=== PATIENT | male | born 1930 | race Caucasian/White ===

== ENCOUNTER 2020-03-02 14:33 | Inpatient (IN) | payer OTHER ==
[~2020-03-02] VITALS: Ht 182.9 cm; Wt 46.3 kg
--- NOTE | 2020-03-02 15:00 | NUR ---
BIB [facility] FROM [facility],LOW [id number]=40% UP TO 91% WITH N/C TESTED (+) TO COVID 2 DAYS AGO. PATIENT A/OX1, BREATHING SLIGHTLY LABORED, INCREASED O2 TO 5LPM VIA NC, WITH SPO2 OF 99%. NO DSITRESS NOTED. DR. FRIEDMAN AT BEDSIDE FOR EVAL.
--- NOTE | 2020-03-02 15:10 | NUR ---
IV LINE ESTABLISHED, BLOOD DRAWN AND SENT TO LAB.
[2020-03-02 16:56] LABS: BASOPHILS % (AUTO) 0.2 % (0.0-2.0); EOSINOPHILS % (AUTO) 1.2 % (0.0-6.0); HEMATOCRIT 43 % (39-51); HEMOGLOBIN 14.1 g/dL (13.5-17.5); LYMPHOCYTES # (AUTO) 1.3 /CMM (0.8-4.8); LYMPHOCYTES % (AUTO) 18.5 % (20.0-44.0); MEAN CORPUSCULAR HGB CONC 33 g/dl (31.0-36.0); MEAN CORPUSCULAR VOLUME 94 fL (80-96); MONOCYTES # (AUTO) 0.8 /CMM (0.1-1.30); MONOCYTES % (AUTO) 11.7 % (2.0-12.0); NEUTROPHILS # (AUTO) 4.7 /CMM (1.8-8.9); NEUTROPHILS % (AUTO) 68.4 % (43.0-81.0); PLATELET COUNT (AUTO) 217 /CMM (150-450); WHITE BLOOD COUNT (AUTO) 6.8 K/uL (4.3-11.0)
[2020-03-02] MEDS ORDERED: IV NS 0.9% 500 ML BAG IV ONE (17:30)
[2020-03-02 17:50] LABS: ALANINE AMINOTRANSFERASE 35 U/L (12-78); ALBUMIN 2.7 g/dL (3.4-5.0); ALKALINE PHOSPHATASE 196 U/L (46-116); ASPARTATE AMINOTRANSFERASE 40 U/L (15-37); BILIRUBIN,DIRECT 0.2 mg/dL (0.0-0.2); BILIRUBIN,TOTAL 0.6 mg/dL (0.2-1.0); CALCIUM, SERUM 9.9 mg/dL (8.5-10.1); CARBON DIOXIDE 26 mmol/L (21-32); CHLORIDE 107 mmol/L (98-107); CREATININE 0.9 mg/dL (0.6-1.3); GLUCOSE 94 mg/dL (74-106); POTASSIUM 4.4 mmol/L (3.5-5.1); SODIUM SERUM 142 mmol/L (136-145); UREA NITROGEN, BLOOD 31 mg/dL (7-18)
[2020-03-02] MEDS ORDERED: MIRT15TA7 PO (17:57)
[2020-03-02] MEDS ORDERED: FURO20TA4 PO (17:57)
[2020-03-02] MEDS ORDERED: QUET25TA PO (17:57)
[2020-03-02] MEDS ORDERED: POTA10TA PO (17:57)
[2020-03-02] MEDS ORDERED: PRED2.5T PO (17:57)
--- NOTE | 2020-03-02 18:01 | NUR ---
LAB CALLED LACTIC ACID 2.1
[2020-03-02] MEDS ORDERED: IOHEXOL-300 100 ML VIAL IV ONE (18:07)
[2020-03-02] MEDS ORDERED: IV NS 0.9% 250 ML IV ONE (18:08)
[2020-03-02 18:09] LABS: BILIRUBIN,URINE Negative (NEGATIVE); BLOOD, URINE Large Ery/uL (NEGATIVE); COLOR,URINE YELLOW (YELLOW); LEUKOCYTE ESTERASE ,URINE Negative (NEGATIVE); NITRITE, URINE Negative (NEGATIVE); PROTEIN,URINE 30 mg/dl (NEGATIVE); UGLUCOSE Negative (NEGATIVE); UROBILINOGEN,URINE 0.2 EU/dL (0.2)
[2020-03-02 18:23] LABS: BACTERIA,URINE Rare /HPF (None Seen); RBC,URINE 21-50 /HPF (0-2); SQUAMOUS EPITHELIAL CELL,UR Few /HPF (None Seen); WBC,URINE NONE SEEN /HPF (0-3)
--- NOTE | 2020-03-02 19:18 | NUR ---
CALLED [facility] [phone] WILL CALL US BACK.
--- NOTE | 2020-03-02 19:19 | NUR ---
CALLED PHARMACY FOR MEDICATION.
--- NOTE | 2020-03-02 19:24 | NUR ---
PARISH NAGEL SPOKE TO [facility] REGARDING PT ADMISSION.
--- NOTE | 2020-03-02 19:27 | NUR ---
DR. SIDHU PAGED PER ER ORDER.
[2020-03-02] MEDS ORDERED: VANCOMYCIN 1 GM in IV D5W 250 ML IV ONE (19:30)
[2020-03-02] MEDS ORDERED: AZTREONAM 2 G in IV NS 0.9% 100 ML IV ONE (19:30)
[2020-03-02] MEDS ORDERED: DEXAMETHASONE SOD PHOSPHATE 10 MG/ML VIAL IV ONE (19:30)
[2020-03-02] MEDS ORDERED: DEXAMETHASONE SOD PHOSPHATE 10 MG/ML VIAL ONE (19:54)
--- NOTE | 2020-03-02 22:30 | NUR ---
CALLED DR DOWNS FOR ADMITTING ORDERS
[2020-03-02] MEDS ORDERED: Z GUARD REMEDY 2 OZ OINT TP PRN (23:00)
[2020-03-02] MEDS ORDERED: ONDANSETRON HCL/PF 4 MG/2 ML VIAL IVP PRN (23:00)
[2020-03-02] MEDS ORDERED: MAG HYDROX/AL HYDROX/SIMETH 30 ML UDC PO PRN (23:00)
[2020-03-02] MEDS ORDERED: ACETAMINOPHEN 325 MG TABLET PO PRN (23:00)
[2020-03-02] MEDS ORDERED: HYDROCODONE/APAP 5/325MG TABLET PO PRN (23:00)
[2020-03-02] MEDS ORDERED: MAGNESIUM HYDROXIDE 30 ML UDC PO PRN (23:00)
[2020-03-02] MEDS ORDERED: ZOLPIDEM TARTRATE 5 MG TABLET PO PRN (23:00)
--- NOTE | 2020-03-02 23:07 | NUR ---
CALLED AFTER HOUR PHARMACY TO VERIFY ORDERS
[2020-03-02] MEDS ORDERED: ENOXAPARIN SODIUM 40 MG/0.4 ML DISP.SYRIN SQ ONE (23:27)
[2020-03-02] MEDS ORDERED: CEFEPIME 1 GM VIAL ONE (23:27)
[2020-03-02] MEDS: CEFEPIME 1 GM in IV D5W 50 ML IV SCH (23:30)
[2020-03-02] MEDS: ENOXAPARIN SODIUM 40 MG/0.4 ML DISP.SYRIN SQ SCH (23:40)
--- NOTE | 2020-03-02 23:59 | NUR ---
SPOKE TO ON THE PHONE, PT IS A RESIDENT AT THE [facility] IN [place]
--- NOTE | 2020-03-03 03:05 | NUR ---
PT AAOX3, NO COMPLAINTS AT THIS TIME. PT CONNECTED TO THE MONITOR AND POX. RESPIRATIONS EVEN AND UNLABORED W/ NAD NOTED.
--- NOTE | 2020-03-03 04:22 | NUR ---
MACHINE STRAP BUCKLER AT BEDSIDE FOR BLOOD DRAW
[2020-03-03 04:32] LABS: BASOPHILS % (AUTO) 0.1 % (0.0-2.0); HEMATOCRIT 41 % (39-51); HEMOGLOBIN 13.5 g/dL (13.5-17.5); LYMPHOCYTES # (AUTO) 0.4 /CMM (0.8-4.8); LYMPHOCYTES % (AUTO) 8.3 % (20.0-44.0); MEAN CORPUSCULAR HGB CONC 33 g/dl (31.0-36.0); MEAN CORPUSCULAR VOLUME 93 fL (80-96); MONOCYTES # (AUTO) 0.1 /CMM (0.1-1.30); NEUTROPHILS # (AUTO) 4.7 /CMM (1.8-8.9); NEUTROPHILS % (AUTO) 90.6 % (43.0-81.0); PLATELET COUNT (AUTO) 240 /CMM (150-450); RED BLOOD CELL COUNT(AUTO) 4.43 MIL/uL (4.5-6.0); WHITE BLOOD COUNT (AUTO) 5.2 K/uL (4.3-11.0)
[2020-03-03 04:56] LABS: CALCIUM, SERUM 9.3 mg/dL (8.5-10.1); CREATININE 0.9 mg/dL (0.6-1.3); PHOSPHORUS 3.2 mg/dL (2.5-4.9); POTASSIUM 4.7 mmol/L (3.5-5.1)
[2020-03-03 04:58] LABS: D-DIMER 2.14 mg/L(FEU (0.17-0.50)
[2020-03-03 05:05] LABS: THYROID STIMULATING HORMONE 1.363 uIU/mL (0.358-3.74)
--- NOTE | 2020-03-03 06:45 | NUR ---
PT CLEANED. FULL LINEN AND GOWN CHANGED. PT AAOX2, VSS, RESPIRATIONS EVEN AND UNLABORED W/ 5 LPM VIA N/C. PT CONNECTED TO THE GLAZE CARRIER AND POX
--- NOTE | 2020-03-03 09:15 | NUR ---
PATIENT A/OX2, REPOSITIONED IN BED, FED BREAKFAST BY EMT AND TOLERATED WELL.
[2020-03-03] MEDS ORDERED: SERT25TA PO (09:31)
[2020-03-03] MEDS ORDERED: MELA5TAB PO (09:31)
[2020-03-03] MEDS: DEXAMETHASONE SOD PHOSPHATE 10 MG/ML VIAL IV SCH (09:34)
[2020-03-03] MEDS: QUETIAPINE FUMARATE 25 MG TABLET PO SCH ×2 (09:34→17:30)
[2020-03-03] MEDS ORDERED: MIRT15TA7 PO (11:01)
[2020-03-03] MEDS ORDERED: GUAI-970 PO (11:06)
[2020-03-03] MEDS ORDERED: ACET325T53 MC (11:06)
[2020-03-03] MEDS ORDERED: LATA2.5D15 OP (11:06)
--- NOTE | 2020-03-03 12:00 | NUR ---
PATIENT ATE LUNCH AND TOLERATED WELL. NO DISTRESS NOTED, PERICARE PROVIDED. TURNED AND REPOSITIONED. O2 TITRATED DOWN TO 2LPM VIA NC WITH SPO2 OF 94-96%. NO RESP DISTRESS NOTED.
[2020-03-03] MEDS: VANCOMYCIN 1 GM in IV D5W 250 ML IV SCH (14:00)
--- NOTE | 2020-03-03 18:39 | NUR ---
PATIENT RESTING, PERICARE PROVIDED, TURNED AND RESPOSITIONED EVERY 2 HOURS. BREATHING EVEN AND UNLABORED, TOLERATING 2LPM VIA NC.
--- NOTE | 2020-03-03 19:15 | NUR ---
REC'D POS COVID RESULTS. AWARE
--- NOTE | 2020-03-03 20:03 | NUR ---
PT REMAINS IN BED, TURNED AND RESPOSITIONED EVERY 2 HOURS. BREATHING EVEN AND UNLABORED.
[2020-03-03] MEDS: ENOXAPARIN SODIUM 40 MG/0.4 ML DISP.SYRIN SQ SCH (21:04)
--- NOTE | 2020-03-03 21:20 | NUR ---
PT REPOSITIONED, GIVEN A PILLOW, AND MORE BLANKETS. PT ON 2L NC. SAT 94-96%. VSS. PT AAOX2. CALL LIGHT AT BEDSIDE. PT RESTING COMFORTABLY. WILL CONTINUE TO MONITOR.
[2020-03-03] MEDS: MIRTAZAPINE 15 MG TABLET PO SCH (21:56)
[2020-03-03] MEDS: CEFEPIME 1 GM in IV D5W 50 ML IV SCH (23:05)
--- NOTE | 2020-03-03 23:10 | NUR ---
PT REPOSITIONED, REMAINS ON 2L NC, SAT 97%. VSS.
--- NOTE | 2020-03-04 01:09 | NUR ---
PT REPOSITIONED TO THE LEFT, VSS.
--- NOTE | 2020-03-04 03:17 | NUR ---
CHECKED ON PT, PT NOTED ASLEEP. VSS. NO ACUTE DISTRESS NOTED. WILL CONTINUE TO MONITOR.
--- NOTE | 2020-03-04 05:01 | NUR ---
SENIOR ENGINEERING TECHNICIAN AT BEDSIDE FOR [facility].
[2020-03-04 06:02] LABS: BASOPHILS % (AUTO) 0.1 % (0.0-2.0); HEMATOCRIT 38 % (39-51); HEMOGLOBIN 12.6 g/dL (13.5-17.5); LYMPHOCYTES # (AUTO) 0.9 /CMM (0.8-4.8); LYMPHOCYTES % (AUTO) 10.2 % (20.0-44.0); MEAN CORPUSCULAR HGB CONC 33 g/dl (31.0-36.0); MEAN CORPUSCULAR VOLUME 92 fL (80-96); MONOCYTES # (AUTO) 0.7 /CMM (0.1-1.30); MONOCYTES % (AUTO) 7.8 % (2.0-12.0); NEUTROPHILS # (AUTO) 7.3 /CMM (1.8-8.9); NEUTROPHILS % (AUTO) 81.9 % (43.0-81.0); PLATELET COUNT (AUTO) 252 /CMM (150-450); RED BLOOD CELL COUNT(AUTO) 4.14 MIL/uL (4.5-6.0); WHITE BLOOD COUNT (AUTO) 8.9 K/uL (4.3-11.0)
[2020-03-04 06:20] LABS: CALCIUM, SERUM 9.6 mg/dL (8.5-10.1); CREATININE 0.7 mg/dL (0.6-1.3); MAGNESIUM 2.4 mg/dL (1.8-2.4); PHOSPHORUS 4.1 mg/dL (2.5-4.9); POTASSIUM 4.1 mmol/L (3.5-5.1)
--- NOTE | 2020-03-04 06:45 | NUR ---
PT REPOSITIONED, PROVIDED WITH MORE BLANKETS. VSS.
--- NOTE | 2020-03-04 07:18 | NUR ---
REPORT GIVEN TO TETE LÓPEZ FOR [facility]
[2020-03-04] MEDS: QUETIAPINE FUMARATE 25 MG TABLET PO SCH ×2 (08:17→17:30)
[2020-03-04] MEDS: DEXAMETHASONE SOD PHOSPHATE 10 MG/ML VIAL IV SCH (08:17)
[2020-03-04] MEDS: VANCOMYCIN 1 GM in IV D5W 250 ML IV SCH (08:18)
--- NOTE | 2020-03-04 09:24 | NUR ---
PATIENT A/OX1, BREATHING EVEN AND UNLABORED, ON O2 AT 3LPM VIA NC WITH SPO2 OF 94-96%. NO DISTRESS NOTED, REPOSITIONED. DIAPER CHANGED. BREAKFAST PROVIDED, FED BY STATE EDITOR AND TOLERATED WELL.
--- NOTE | 2020-03-04 18:25 | NUR ---
PATIENT TRANSFERRED TO ROOM 201 VIA ACLS PROTOCOL. IN NO DISTRESS. REPORT GIVEN TO VEGA LÓPEZ. NEEDS ATTENDED.
--- NOTE | 2020-03-04 18:29 | NUR ---
RN NOTES RECEIVED PATIENT FROM ER VIA GURNEY, PLACED IN ROOM. ORIENTED TO ROOM, CALL LIGHT AND UNIT. OBSERVED PATIENT CONSTANTLY REMOVING NASAL CANNULA AND PULLING OUT IV ACCESS. MD MADE AWARE. ALERT AND ORIENTED X1. BED IN LOWEST POSITION LOCKED. BED ALARM ON. FREQUENT VISUAL CHECK DONE.
[2020-03-04 19:00] VITALS: BP 98/72
--- NOTE | 2020-03-04 19:00 | NUR ---
RN NOTES PATIENT ALERT AND ORIENTED X1. VERBALLY RESPONSIVE. RECEIVED ORDER FOR BILATERAL WRIST RESTRAINT, APPLIED WITH SKIN AND CIRCULATION CHECKED. ENDORSED TO NOC SHIFT RNLURDES FOR CONTINUATION OF CARE. V/S 98/72, HR: 101; RR: 21 T: 98.4.
[2020-03-04 20:00] VITALS: BP 107/72
[2020-03-04] MEDS ORDERED: VANCOMYCIN 1 GM in IV D5W 250 ML IV SCH (20:00)
[2020-03-04] MEDS: ENOXAPARIN SODIUM 40 MG/0.4 ML DISP.SYRIN SQ SCH (21:00)
[2020-03-04] MEDS: MIRTAZAPINE 15 MG TABLET PO SCH (21:54)
[2020-03-04] MEDS: CEFEPIME 1 GM in IV D5W 50 ML IV SCH (23:05)
--- NOTE | 2020-03-04 23:36 | NUR ---
MS2/RN DURING INITIAL ROUNDING, PATIENT WAS AWAKE, CONFUSED, MILDLY RESTLESS, BILATERAL SOFT WRIST RESTRAIN NOTED TO PREVENT PULLING OUT THE IV, NO SIGNS OF DISTRESS NOTED, WILL CLOSELY MONITOR FOR SAFETY.
[2020-03-05] VITALS: BP 148/81
[2020-03-05 04:00] VITALS: BP 138/85
[2020-03-05 06:07] LABS: BASOPHILS % (AUTO) 0.3 % (0.0-2.0); HEMATOCRIT 43 % (39-51); HEMOGLOBIN 13.7 g/dL (13.5-17.5); LYMPHOCYTES # (AUTO) 0.8 /CMM (0.8-4.8); LYMPHOCYTES % (AUTO) 7.1 % (20.0-44.0); MEAN CORPUSCULAR HGB CONC 32 g/dl (31.0-36.0); MEAN CORPUSCULAR VOLUME 93 fL (80-96); MONOCYTES # (AUTO) 1.3 /CMM (0.1-1.30); MONOCYTES % (AUTO) 11.3 % (2.0-12.0); NEUTROPHILS # (AUTO) 9.4 /CMM (1.8-8.9); NEUTROPHILS % (AUTO) 81.3 % (43.0-81.0); PLATELET COUNT (AUTO) 246 /CMM (150-450); RED BLOOD CELL COUNT(AUTO) 4.55 MIL/uL (4.5-6.0); WHITE BLOOD COUNT (AUTO) 11.6 K/uL (4.3-11.0)
[2020-03-05 06:18] LABS: CALCIUM, SERUM 9.4 mg/dL (8.5-10.1); CREATININE 0.7 mg/dL (0.6-1.3); MAGNESIUM 2.4 mg/dL (1.8-2.4); PHOSPHORUS 2.1 mg/dL (2.5-4.9); POTASSIUM 3.8 mmol/L (3.5-5.1)
--- NOTE | 2020-03-05 06:29 | NUR ---
MS2/RN PATIENT IS SLEEPING AT THIS TIME, APPEAR COMFORTABLE, NO SIGNS OF DISTRESS NOTED, CALL LIGHT IN REACH, ALL NEEDS ATTENDED AT THIS TIME, WILL CONTINUE TO MONITOR.
--- NOTE | 2020-03-05 07:30 | NUR ---
TELE/RN OPENING NOTE Received patient resting in bed, A&O x 1. No s/s of pain/discomfort at this time. Breathing even and non-labored on 2L oxygen via NC. No respiratory or cardiac distress noted. On tele monitor, reading SR 93. IV accesses noted on R AC #18 and L FA #22, both patent and intact, and flushing well. Bilateral soft wrist restraints noted, patient attempted to remove lines and tele leads, circulation and sensation remain intact in both extremities, able to clench fists. Bed locked to its lowest position, side rails x 2 up, call light in hand. Will continue with current medical management.
[2020-03-05 08:00] VITALS: BP 130/68
[2020-03-05] MEDS: DEXAMETHASONE SOD PHOSPHATE 10 MG/ML VIAL IV SCH (08:04)
[2020-03-05] MEDS: QUETIAPINE FUMARATE 25 MG TABLET PO SCH ×2 (08:04→16:47)
[2020-03-05 12:00] VITALS: BP 129/106
[2020-03-05] MEDS ORDERED: K PHOS NEUTRAL 250 MG TABLET PO ONE (13:30)
[2020-03-05 16:00] VITALS: BP 120/78
[2020-03-05] MEDS: IPRATROPIUM/ALBUTEROL INHALER IH SCH (18:00)
--- NOTE | 2020-03-05 19:10 | NUR ---
TELE/RN CLOSING NOTE Patient sleeping in bed, A&O x 1. All needs met and attended to. No s/s of pain/discomfort at this time. Breathing even and non-labored on 2L oxygen via NC. No respiratory or cardiac distress noted. On tele monitor, reading SR 78. IV accesses noted on R AC #18 and L FA #22, both patent and intact, and flushing well. Bilateral soft wrist restraints in place, patient circulation and sensation remain intact in both extremities, able to clench fists. Bed locked to its lowest position, side rails x 2 up, call light in hand. Will continue with current medical management.
[2020-03-05 20:00] VITALS: BP 121/67
[2020-03-05] MEDS: MIRTAZAPINE 15 MG TABLET PO SCH (22:07)
[2020-03-05] MEDS: ENOXAPARIN SODIUM 40 MG/0.4 ML DISP.SYRIN SQ SCH (22:07)
[2020-03-05] MEDS: CEFEPIME 1 GM in IV D5W 50 ML IV SCH (23:58)
[2020-03-06] VITALS: BP 125/66
--- NOTE | 2020-03-06 00:09 | NUR ---
COMBIVENT INHALER NOT AT BEDSIDE. TO FOLLOW UP WITH PHARMACY TOMORROW SINCE OFFSITE PHARMACY ONLY AVAILABLE. PT IN NO APPARENT RESP DISTRESSS. RESP EVEN AND UNLABORED ON 2LNC.
--- NOTE | 2020-03-06 02:59 | NUR ---
requested combivent from housekeeping worker she is going to check night stock.
[2020-03-06 04:00] VITALS: BP 149/80
[2020-03-06] MEDS: IPRATROPIUM/ALBUTEROL INHALER IH SCH ×4 (06:00→18:22)
--- NOTE | 2020-03-06 06:31 | NUR ---
COMBIVENT UNAVAILABLE IN NIGHT STOCK WILL FOLLOW UP WITH PHARMACY THIS AM.
[2020-03-06 06:39] LABS: BASOPHILS % (AUTO) 0.1 % (0.0-2.0); HEMATOCRIT 43 % (39-51); HEMOGLOBIN 14.3 g/dL (13.5-17.5); LYMPHOCYTES # (AUTO) 0.9 /CMM (0.8-4.8); LYMPHOCYTES % (AUTO) 10.2 % (20.0-44.0); MEAN CORPUSCULAR HGB CONC 33 g/dl (31.0-36.0); MEAN CORPUSCULAR VOLUME 92 fL (80-96); MONOCYTES # (AUTO) 1.2 /CMM (0.1-1.30); NEUTROPHILS # (AUTO) 6.9 /CMM (1.8-8.9); NEUTROPHILS % (AUTO) 76.7 % (43.0-81.0); PLATELET COUNT (AUTO) 320 /CMM (150-450); RED BLOOD CELL COUNT(AUTO) 4.71 MIL/uL (4.5-6.0)
[2020-03-06 06:46] LABS: CALCIUM, SERUM 9.7 mg/dL (8.5-10.1); CREATININE 0.7 mg/dL (0.6-1.3); MAGNESIUM 2.4 mg/dL (1.8-2.4); PHOSPHORUS 2.1 mg/dL (2.5-4.9); POTASSIUM 3.9 mmol/L (3.5-5.1)
--- NOTE | 2020-03-06 07:00 | NUR ---
TELE/RN CLOSING NOTE PT IN BED WITH EYES CLOSED IN NO S/S OF PAIN OR DISCOMFORT BRATHING EVEN AND UNLABORED ON 2LNC BILATERAL SOFT WRIST RESTRAINTS IN PLACE CIRCULATION CAP REFILL LESS THEN 3 SECONDS TO BOTH HANDS. BED LOCKED DOWN IN LOW POSITION CALL LIGHT IN REACH. BED ALARM ACTIVE.
--- NOTE | 2020-03-06 07:32 | NUR ---
SAILBOAT CAPTAIN OPENING NOTES RECEIVED PATIENT IN BED, AWAKE, A/O X1, CONFUSED. PATIENT ON OXYGEN THERAPY AT 2 LMP VIA NASAL CANNULA; IN NO ACUTE RESPIRATORY DISTRESS. NO COMPLAINS OF PAIN. RAC G #18 AND LFA G #22 IV ACCESS PRESENT AND INTACT. PATIENT ON BILATERAL SOFT WRIST RESTRAINS. SAFETY PRECAUTIONS IN PLACE; BED IN LOW POSITION AND LOCKED, RAILS UP X2, CALL LIGHT WITHIN REACH. WILL CONTINUE TO MONITOR PATIENT.
--- NOTE | 2020-03-06 07:44 | NUR ---
COMBIVENT INHALER REQUESTED FROM PHARMACY; STATE WILL DELIVER NEW INHALER TO UNIT.
[2020-03-06 08:00] VITALS: BP 131/82
[2020-03-06] MEDS: DEXAMETHASONE SOD PHOSPHATE 10 MG/ML VIAL IV SCH (08:26)
[2020-03-06] MEDS: QUETIAPINE FUMARATE 25 MG TABLET PO SCH ×2 (08:26→16:39)
--- NOTE | 2020-03-06 09:01 | NUR ---
WOUND CARE CONSULT: REVIEWED CHART AND NURSING DOCUMENTATION. SPOKE WITH RN AND DISCUSSED SKIN PROTECTION. CURRENT JADE SCORE IS 14. PER NURSING STAFF, PT IS UNCOOPERATIVE AT TIMES. MD IN AGREEMENT WITH PLAN OF CARE.
[2020-03-06 12:00] VITALS: BP 101/69
--- NOTE | 2020-03-06 12:44 | NUR ---
OPERATIONS LIAISON NOTES PATIENT IN BED, AWAKE, SATURATING 88% ON ROOM AIR AT REST.
[2020-03-06] MEDS ORDERED: DEXA6TAB PO (13:01)
[2020-03-06] MEDS ORDERED: ASPI-992 PO (13:01)
[2020-03-06 16:00] VITALS: BP 122/75
[2020-03-06] MEDS ORDERED: K PHOS NEUTRAL 250 MG TABLET PO ONE (16:30)
--- NOTE | 2020-03-06 18:51 | NUR ---
FIREARMS SPECIALIST CLOSING NOTES PATIENT IN BED, AWAKE, A/O X1, CONFUSED AND AWAITING DISCHARGE. ALL PAPERS ARE READY AND WILL ENDORSE TO POLE FRAMER NURSE. PATIENT ON OXYGEN THERAPY AT 2 LMP VIA NASAL CANNULA; IN NO ACUTE RESPIRATORY DISTRESS. NO COMPLAINS OF PAIN DURING THE DAY. RAC G #18 AND LFA G #22 IV ACCESS PRESENT AND INTACT. PATIENT REMAINS ON BILATERAL SOFT WRIST RESTRAINS. ALL NEEDS ATTENDED THROUGHOUT THE DAY. SAFETY PRECAUTIONS IN PLACE; BED IN LOW POSITION AND LOCKED, RAILS UP X2, CALL LIGHT WITHIN REACH. WILL ENDORSE TO POLE FRAMER NURSE.
--- NOTE | 2020-03-06 19:50 | NUR ---
TELECOM COORDINATOR OPENING NOTES RECEIVED PATIENT IN BED, ALERT AND ORIENTED X 1 CONFUSED. VERBALLY RESPONSIVE, UNCOOPERATIVE AT TIMES. BREATHING REGULAR AND UNLABORED ON OXYGEN AT 2L/MIN VIA NASAL CANNULA, LATEST SPO2 95%. LEFT FOREARM G22/RIGHT AC G18 IV LINES INTACT AND PATENT, FLUSHING WELL WITH NO BLEEDING OR S/S OF INFILTRATION NOTED. ON CARDIAC MONITORING WITH NORMAL SINUS RHYTHM WITH PVC's AT 93bmp. NO S/S OF PAIN/DISCOMFORT SEEN AT THIS TIME. BILATERAL SOFT WRIST RESTRAINTS ON, SKIN ASSESSMENT AND CIRCULATION CHECKED. BED LOW AND LOCKED ON SEMI FOWLERS POSITION. CALL LIGHT IN REACH. MAINTAINED ON ISOLATION FOR COVID19, PROPER HAND WASHING AND ISOLATION PRECAUTIONS OBSERVED. WILL CONTINUE TO MONITOR.
[2020-03-06 20:00] VITALS: BP 119/65
[2020-03-06] MEDS: ENOXAPARIN SODIUM 40 MG/0.4 ML DISP.SYRIN SQ SCH (21:39)
[2020-03-06] MEDS: MIRTAZAPINE 15 MG TABLET PO SCH (21:39)
[2020-03-06] MEDS: CEFEPIME 1 GM in IV D5W 50 ML IV SCH (22:18)
[2020-03-07] VITALS: BP 150/86
--- NOTE | 2020-03-07 00:15 | NUR ---
ADVANCED MANUFACTURING CONSULTANT NOTES REFUSED DUE BREATHING TREATMENT, BITING OFF INHALER AND SPITTING. RISK AND BENEFITS EXPLAINED.
[2020-03-07 04:00] VITALS: BP 142/78
[2020-03-07] MEDS: IPRATROPIUM/ALBUTEROL INHALER IH SCH ×3 (05:46→12:58)
--- NOTE | 2020-03-07 06:55 | NUR ---
UTILITY AIRCREWMAN CLOSING NOTES PATIENT IN BED, ALERT AND ORIENTED X 1 CONFUSED. AFEBRILE WITH NO S/S OF DISTRESS OBSERVED. LEFT FOREARM G22/RIGHT AC G18 IV LINES PATENT AND FLUSHING WELL. MAINTAINED ON CARDIAC MONITORING WITH SINUS TACHYCARDIA WITH PVC's AT 113bmp. NO S/S OF PAIN/DISCOMFORT NOTED AT THIS TIME. BILATERAL SOFT WRIST RESTRAINTS ON. BED LOW AND LOCKED ON SEMI FOWLERS POSITION. CALL LIGHT IN REACH. WILL ENDORSE TO MORNING SHIFT FOR CORBIN.
--- NOTE | 2020-03-07 07:15 | NUR ---
RN NOTES RECEIVED PATIENT IN BED ALERT AND AWAKE ORIENTED X1. HOB ELEVATED. NO S/S OF RESPIRATORY DISTRESS. BED IN LOWEST POSITION ,LOCKED. BED ALARM ON. CALL LIGHT WITHIN REACH. FREQUENT VISUAL CHECK DONE.
[2020-03-07 07:48] LABS: CALCIUM, SERUM 8.9 mg/dL (8.5-10.1); CREATININE 0.6 mg/dL (0.6-1.3); PHOSPHORUS 1.7 mg/dL (2.5-4.9); POTASSIUM 3.3 mmol/L (3.5-5.1)
[2020-03-07 08:00] VITALS: BP 136/79
[2020-03-07] MEDS: DEXAMETHASONE SOD PHOSPHATE 10 MG/ML VIAL IV SCH (08:22)
[2020-03-07] MEDS: QUETIAPINE FUMARATE 25 MG TABLET PO SCH (08:22)
[2020-03-07] MEDS ORDERED: K PHOS NEUTRAL 250 MG TABLET PO ONE (10:00)
[2020-03-07] MEDS ORDERED: POTASSIUM CHLORIDE 20 MEQ POWDER PACKET PO ONE (10:00)
[2020-03-07 12:00] VITALS: BP 112/75
--- NOTE | 2020-03-07 14:51 | NUR ---
RN NOTES PATIENT FOR DISCHARGE, CM FROM [place] STATED THAT CONCENTRATOR HAS BEEN DELIVERED TO [facility] AND THAT THEY ARE AWARE THAT PATIENT IS GOING BACK TO [place] TODAY. ALERT AND ORIENTED X1. ABLE TO FOLLOW SIMPLE COMMANDS. REMAINED ON 2L/MIN VIA NC ARNEL WELL. PATIENT FOR DISCHARGE. ALL BELONGINGS ACCOUNTED FOR. IV ACCESS REMOVED WITH CATHETER TIP INTACT WITH GAUZE DRESSING APPLIED. PATIENT PICKED UP BY 2 EMT AND LEFT VIA GURNEY IN STABLE CONDITION.
== END 2020-03-07 14:51 | DRG 177 ==
LOC: ER 14:38 → TRANSITION 21:33 → TELE2 03-04 17:37
PROVIDERS: ADMIT Student in an Organized Health Care Education/Training Program; ATTEND Student in an Organized Health Care Education/Training Program
DX: U07.1 COVID-19 (principal); J12.89 Other viral pneumonia; J96.01 Acute respiratory failure with hypoxia; J44.0 Chronic obstructive pulmonary disease with (acute) lower respiratory infection; J90 Pleural effusion, not elsewhere classified; F03.90 Unspecified dementia, unspecified severity, without behavioral disturbance, psychotic disturbance, mood disturbance, and anxiety; I25.10 Atherosclerotic heart disease of native coronary artery without angina pectoris; I87.2 Venous insufficiency (chronic) (peripheral); F41.9 Anxiety disorder, unspecified; H35.30 Unspecified macular degeneration; H40.9 Unspecified glaucoma; H04.129 Dry eye syndrome of unspecified lacrimal gland; Z88.0 Allergy status to penicillin; Z79.899 Other long term (current) drug therapy; E04.2 Nontoxic multinodular goiter; K22.2 Esophageal obstruction; I45.10 Unspecified right bundle-branch block; T17.990A Other foreign object in respiratory tract, part unspecified in causing asphyxiation, initial encounter; X58.XXXA Exposure to other specified factors, initial encounter; Y92.9 Unspecified place or not applicable; J98.4 Other disorders of lung
CPT/HCPCS: 36415; 71045-TC; 71260-TC; 80048-TC; 80061-TC; 80076-TC; 80202-TC; 81001; 82550-TC; 82728-TC; 83605-TC; 83615-TC; 83735-TC; 83880; 84100-TC; 84443-TC; 84484-TC; 85025-TC; 85378-TC; 85385-TC; 85730-TC; 86140-TC; 87040-TC; 87081-TC; 87086-TC; 87899; 92521; 92526; 93308-TC; 97110-TC; 97530-TC; G0378; J0692; J1100; J1650; J2405; J3370; J3490; J7030; J7040; J7050; J7060; Q9967; U0003